=== PATIENT | male | born 1945 | race Caucasian/White ===

== ENCOUNTER 2025-04-14 08:21 | Outpatient (CLI) | payer MEDICARE ==
[~2025-04-14 08:21] MED LIST: IODIXANOL 320 MG/ML INFUS..BTL 100ML IV ONE
[2025-04-14 08:47] LABS: MEAN PLATELET VOLUME 7.2 FL (7.4-10.4); RED CELL DISTRIBUTION WIDTH 12.5 % (11.5-14.5)
[2025-04-14 09:03] LABS: APTT 25 SECONDS (22-32); INR 1.0 INR
--- NOTE | 2025-04-14 09:33 | RADIOLOGY REPORT ---
CHEST RADIOGRAPH Indication: SOB, TAVR Technique: Two views of the chest was obtained. Comparison: None Findings: No focal consolidation. No significant pleural effusion. No pneumothorax. Nonenlarged cardiomediastinal silhouette. IMPRESSION: No acute pulmonary process.
[2025-04-14 09:38] LABS: CREATININE 1.07 MG/DL (0.60-1.10); PRO BRAIN NATRIURETIC PEPTIDE 78 PG/ML (0-450); TOTAL CARBON DIOXIDE 30.5 MMOL/L (24-32); eGFR 67 ML/MIN
--- NOTE | 2025-04-14 20:18 | RADIOLOGY REPORT ---
CT CTA TAVR INDICATION: Stenosis TECHNIQUE: Gated CT angiography of the heart was performed along with CT angiography of the lower neck, chest, abdomen, and pelvis. MIP, MPR, and 3-D images were obtained. Measurements were performed on the [employer] workstation. All CT scans at this facility use dose modulation, iterative reconstruction, and/or weight based dosing when appropriate to reduce radiation dose to as low as reasonably achievable. COMPARISON: None available at the time of dictation. FINDINGS: ANNULAR PLANE DISTANCE: 31.2 x 23.6 mm AREA: 5.58 cm2 AVERAGE DIAMETER: 27.4 mm PERIMETER: 85.7 mm LEFT CORONARY ARTERY HEIGHT ABOVE ANNULAR PLANE: 13.9 mm RIGHT CORONARY ARTERY HEIGHT ABOVE ANNULAR PLANE: 9.03 mm LEFT CORONARY SINUS DIAMETER: 37.1 mm RIGHT CORONARY SINUS DIAMETER: 37.7 mm NONCORONARY CORONARY SINUS DIAMETER: 38.3 mm SINOTUBULAR JUNCTION DIAMETER: 33.7 mm RIGHT COMMON ILIAC ARTERY MINIMAL DIMENSIONS: 8.34 mm RIGHT EXTERNAL ILIAC ARTERY MINIMAL DIMENSIONS: 8.08 mm RIGHT COMMON FEMORAL ARTERY MINIMAL DIMENSIONS: 9.26 mm LEFT COMMON ILIAC ARTERY MINIMAL DIMENSIONS: 8.68 mm LEFT EXTERNAL ILIAC ARTERY MINIMAL DIMENSIONS: 8.2 mm LEFT COMMON FEMORAL ARTERY MINIMAL DIMENSIONS: 9.4 mm [LOWER NECK]: Unremarkable [LYMPH NODES/MEDIASTINUM]: No abnormal lymph nodes by CT size criteria [CARDIOVASCULAR]: Normal cardiac size. No pericardial effusion. No aneurysmal dilatation of the great vessels. Coronary artery calcifications. [LUNG PARENCHYMA/PLEURAL SPACE]: No consolidation, suspicious focal airspace opacity, or suspicious nodules. No pleural effusion or pneumothorax. [CHEST WALL]: Unremarkable. [LIVER]: Normal hepatic size without suspicious focal lesion. [SPLEEN]: Unremarkable. [PANCREAS]: Unremarkable. [GALLBLADDER AND BILIARY TREE]: Surgically absent. No biliary dilatation. [ADRENAL GLANDS]: Unremarkable [KIDNEYS]: No hydronephrosis. No nephroureterolithiasis. Benign appearing renal cysts, compatible with Bosniak type I cyst. No imaging follow-up required. [BLADDER]: Decompressed [PELVIC ORGANS]: Mild to moderate prostatomegaly. [BOWEL/MESENTERY]: Stomach is normal. No CT evidence of bowel obstruction. Appendix is normal. There is no free air. Descending and sigmoid colonic diverticulosis. No CT evidence of acute diverticulitis. [ASCITES]: Absent [LYMPHADENOPATHY]: No pathologically enlarged lymph nodes by CT size criteria [VASCULATURE]: Vascular calcifications. 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 [ABDOMINAL WALL]: Unremarkable. [MUSCULOSKELETAL]: No acute fracture or aggressive focal osseous lesion. Multifocal degenerative change of the visualized spine. Small suspected lipoma along the intermuscular fascial plane measuring up to 4 cm underneath the left tensor fascia amber. Bone islands of the lumbar spine. IMPRESSION: 1. Calculations for TAVR evaluation as above. 2. 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
== END 2025-04-14 23:59 | disposition home or self-care (01) ==
LOC: RAD 08:21
PROVIDERS: ATTEND Internal Medicine Cardiovascular Disease
DX: K57.30 Diverticulosis of large intestine without perforation or abscess without bleeding (principal); I35.0 Nonrheumatic aortic (valve) stenosis; I77.4 Celiac artery compression syndrome; R06.02 Shortness of breath; I65.29 Occlusion and stenosis of unspecified carotid artery; N40.0 Benign prostatic hyperplasia without lower urinary tract symptoms; Z90.49 Acquired absence of other specified parts of digestive tract
CPT/HCPCS: 36415; 71046; 71275; 74174; 75572; 80053; 83880; 85025; 85610; 85730; Q9967

== ENCOUNTER 2025-04-23 08:16 | Day surgery (SDC) | payer MEDICARE ==
[~2025-04-23] VITALS: Ht 175.3 cm; Wt 69.7 kg
[2025-04-23] VITALS (8 sets, daily range): BP systolic 115–141; BP diastolic 58–71; PULSE 61–70; RESP 10–16; TEMP 97.6; O2SAT 93–97
[~2025-04-23 08:16] MED LIST changes: +ALIR75PE5 SUBCUT; +CALC0.2511 PO; +CHLO473M2 PO; +EZET10TA80 PO; +FINA5TAB11 PO; +FLUO-211 PO; -IODIXANOL 320 MG/ML INFUS..BTL 100ML IV ONE; +KETO15CR2 TOP; +LEVO137T19 PO; +LIPA1CAP18 PO; +LYR25C PO; +SACC250C9 PO; +VITA-135 PO; +ZINC220T3 PO; +aclovate TP; +ibuprofen 800 PO; +tamsulosin hcl PO
--- NOTE | 2025-04-23 09:06 | ELECTROCARDIOGRAPH REPORT ---
[facility] Test Date: 2025-04-23 Test Time: 09:04:12 Pat Name: HUMA BURTON Department: [facility] Patient ID: [facility]-[id number] Room: Gender: M Pharmacy Delivery Driver: REMY : 1945 Requested By: KEI ADAN Order Number: [id number] Reading MD: Dr. RAYNA Brown Measurements Intervals [place] Rate: 66 P: 66 PA: 195 QRS: 30 QRSD: 84 T: 57 QT: 418 QTc: 438 Interpretive Statements Sinus rhythm Electronically Signed On 04-23-2025 16:35:[address] RAYNA Brown Please click the below link to view image of tracing.
[2025-04-23] MEDS ORDERED: LIDOcaine 1% (10mg/ml) 2ml vial ONE (10:20)
[2025-04-23] MEDS ORDERED: verapamil 2.5 mg/ml inj IV ONE (10:20)
[2025-04-23] MEDS ORDERED: heparin 1,000unit/ml 10ml vial 10 ML ONE (10:21)
[2025-04-23] MEDS ORDERED: midazolam 1 mg/ML 2ml injection ONE (10:21)
[2025-04-23] MEDS ORDERED: fentaNYL/PF 50MCG/1 ML 2ML syringe ONE (10:21)
[2025-04-23] MEDS ORDERED: nitroGLYCERIN 500mcg/5mL D5W 5 ML IV ONE (10:22)
[2025-04-23] MEDS ORDERED: ondansetron/PF 4mg/2ml inj IV PRN (11:40)
[2025-04-23] MEDS ORDERED: HYDROcodone/acetaminophen 5mg/325mg tablet PO PRN (11:45)
[2025-04-23] MEDS ORDERED: OXAZEpam 15mg capsule PO PRN (11:45)
[2025-04-23] MEDS ORDERED: HYDROcodone/acetaminophen 10/325mg tab PO PRN (11:45)
--- NOTE | 2025-05-01 11:50 | CARDIOLOGY REPORT ---
DATE OF SERVICE: 04/23/2025 DICTATING PHYSICIAN: Steven Murray MD CARDIAC CATHETERIZATION REPORT DATE OF STUDY: 04/23/2025 PROCEDURES: * Left heart catheterization. * Selective coronary angiography. * Left ventriculography. * Conscious sedation monitoring time for 15 minutes. INDICATION: Aortic stenosis. PHYSICIAN: Steven Murray MD PROCEDURE: After informed consent was obtained, the patient was brought to the cardiac blood bank laboratory professional in a fasting state where the patient was prepped and draped in the usual sterile manner. After adequate anesthesia was obtained using 1% lidocaine to the right wrist, a 5-Afghan sheath was inserted into the right radial artery using a modified Seldinger technique. Thereafter, using a cocktail of heparin, verapamil and nitroglycerin, the cocktail was given via the sheath in the radial artery to prevent coronary vasospasm and for anticoagulation. Next, using an Ultimate-2 catheter, the catheter was advanced under fluoroscopy guidance into the ascending aorta. The catheter was then manipulated to engage the left coronary system and coronary angiography of the left system was obtained. Next, the catheter was disengaged and manipulated to engage the right coronary artery and selective coronary angiography of the right coronary artery was obtained. Thereafter, the catheter was disengaged from the right coronary artery and manipulated to advance into the left ventricle where left ventriculography in the HOLGUIN position was obtained. The catheter was then removed. Hemostasis was obtained using the radial band. HEMODYNAMICS: For the patient's hemodynamics, please refer to the event log. Left ventricular end diastolic pressure was 9 mmHg. A 46 mm gradient across the aortic valve was noted. FINDINGS: The left main coronary artery is a normal caliber vessel free of significant disease. The left anterior descending coronary artery is a medium caliber vessel with mild 20% proximal stenosis. The circumflex coronary artery is a medium caliber vessel free of significant disease. The right coronary arteries are normal caliber dominant vessel with a 20% proximal and mid vessel stenosis. The left ventricle was crossed. Left ventricular end diastolic pressure is 9 mmHg. A 46 mm gradient across the aortic valve is noted. IMPRESSION: * Mild luminal irregularities with no significant coronary artery disease by angiography. * Left ventricular end diastolic pressure is 9 mmHg. A 46 mm gradient across the aortic valve is noted. Steven Murray MD TID: [id number] RECEIPT: [id number] /[id number]
== END 2025-04-23 14:00 | disposition home or self-care (01) ==
LOC: SSTAY O 08:16
PROVIDERS: ATTEND Student in an Organized Health Care Education/Training Program
DX: I35.0 Nonrheumatic aortic (valve) stenosis (principal); I25.10 Atherosclerotic heart disease of native coronary artery without angina pectoris; E78.00 Pure hypercholesterolemia, unspecified; F32.A Depression, unspecified; Z79.1 Long term (current) use of non-steroidal anti-inflammatories (NSAID); Z79.899 Other long term (current) drug therapy
CPT/HCPCS: 93005; 93458; 99152; A6258; C1751; C1769; C1894; J1200; J1644; J2003; J2250; J3010; J3490; J7030; Q9967; Z7610